=== PATIENT | female | born 1960 | race Caucasian/White ===

== ENCOUNTER 2016-10-20 12:59 | Observation (INO) | payer MEDICAID, OTHER ==
[2016-10-20] MEDS ORDERED: Albuterol-Ipratrop 3 mg / 0.5 (3 ml) UD ONE ×3 (13:02→15:46)
[2016-10-20 13:07] VITALS: BMI 35.2
[2016-10-20] MEDS ORDERED: Albuterol-Ipratrop 3 mg / 0.5 (3 ml) UD INH STA ×2 (13:08→13:51)
--- NOTE | 2016-10-20 13:09 | C.PDOC ---
History Of Present Illness 55 y/o female with past medical history of Asthma presents to ER with complaints of SOB for 3 weeks. Patient states using sister's albuterol but there was no improvement. Patient denies fever, cough, chills, N/V/D. No other complaints at this time. Time Seen by Provider: 10/20/16 13:05 Chief Complaint (Nursing): Shortness Of Breath History Per: Patient History/Exam Limitations: no limitations Onset/Duration Of Symptoms: Days Current Symptoms Are (Timing): Still Present Exacerbating Factor(s): denies: Coughing Current Respiratory Medications: Albuterol Severity: Mild Associated Symptoms: denies: Fever, Chills, Chest Pain, Dizziness Past Medical History Reviewed: Historical Data, Nursing Documentation, Vital Signs Vital Signs: Last Vital Signs Temp 98.7 F 10/20/16 13:05 Pulse 91 H 10/20/16 14:48 Resp 18 10/20/16 14:48 BP 128/79 10/20/16 14:48 Pulse Ox 96 10/20/16 14:48 Surgical History: Endoscopy Family History: States: Unknown Family Hx - Social History Hx Tobacco Use: No Hx Alcohol Use: Yes Hx Substance Use: No Review Of Systems Except As Marked, All Systems Reviewed And Found Negative. Constitutional: Negative for: Fever, Chills, Sweats Cardiovascular: Negative for: Chest Pain, Palpitations Respiratory: Positive for: Shortness of Breath. Negative for: Cough Gastrointestinal: Negative for: Nausea, Vomiting, Diarrhea Skin: Negative for: Rash Physical Exam - Physical Exam Appears: Non-toxic, No Acute Distress Skin: Normal Color, Warm Head: Atraumatic, Normacephalic Oral Mucosa: Moist Neck: Normal ROM Chest: Symmetrical Cardiovascular: Rhythm Regular Respiratory: Rhonchi (Scattered), Wheezing (Scattered ) Extremity: No Pedal Edema ED Course And Treatment - Laboratory Results Result Diagrams: 10/20/16 13:27 10/20/16 13:27 Lab Interpretation: Normal (trop/bnp neg) ECG: Interpreted By Az ECG Rhythm: Sinus Rhythm ECG Interpretation: Normal Rate From EC O2 Sat by Pulse Oximetry: 95 Pulse Ox Interpretation: Abnormal - Radiology CXR: Interpreted by [facility] CXR Interpretation: Yes: No Acute Disease Reevaluation Time: 15:54 Reassessment Condition: Improved (mild/mod improved) - Physician Consult Information Outcome Of Conversation: 1600: d/w Dr. Mcmillan- Hospitalist [employer]- ok Tele Obs. Critical Care Time - Critical Care Note Total Time (in mins): 90 Documented critical care: time excludes all time spent performing seperately billable procedures. Medical Decision Making Medical Decision Making: asthma exacerbation- ? h/o same. mild improvement in ED, but O2 sat 95% Tele obs Disposition Doctor Will See Patient In The: Hospital Counseled Patient/Family Regarding: Studies Performed, Diagnosis - Disposition Disposition: HOSPITALIZED Disposition Time: 15:56 Condition: FAIR - Clinical Impression Clinical Impression: Asthma exacerbation - PA / PRODUCT ARCHITECT / Resident Statement MD/DO has reviewed & agrees with the documentation as recorded. MD/DO has examined the patient and agrees with the treatment plan. - Scribe Statement The provider has reviewed the documentation as recorded by the Nathanibdarius Robledo All medical record entries made by the Fatmata were at my direction and personally dictated by me. I have reviewed the chart and agree that the record accurately reflects my personal performance of the history, physical exam, medical decision making, and the department course for this patient. I have also personally directed, reviewed, and agree with the discharge instructions and disposition.
[2016-10-20 13:34] LABS: BASO # 0.2 K/uL (0.0-0.2); BASO % 2.5 % (0.0-2.0); EOS # 1.1 K/uL (0.0-0.7); EOS % 15.9 % (0.0-4.0); HEMATOCRIT 44.4 % (34.0-47.0); LYMPH # 1.8 K/uL (1.0-4.3); LYMPH % 26.9 % (20.0-40.0); MEAN CELL VOLUME 92.8 fL (81.0-99.0); MEAN CORPUSCULAR HGB CONC 33.4 g/dL (33.0-37.0); MEAN PLATELET VOLUME 8.9 fL (7.2-11.7); MONO # 0.3 K/uL (0.0-0.8); MONO % 5.2 % (0.0-10.0); WHITE BLOOD COUNT 6.6 K/uL (4.8-10.8)
[2016-10-20 13:53] LABS: CHLORIDE 104 mmol/L (98-107); POTASSIUM 3.5 mmol/L (3.6-5.2); SODIUM 138 mmol/L (132-148)
[2016-10-20 13:55] LABS: BILIRUBIN,TOTAL 0.4 mg/dL (0.2-1.3); GFR AFRICAN-AMERICAN > 60
[2016-10-20 13:56] LABS: ALB/GLOB RATIO 1.2 (1.0-2.1); ALKALINE PHOSPHATASE 95 U/L (38-126); ALT/SGPT 46 U/L (9-52); AST/SGOT 35 U/L (14-36); BLOOD UREA NITROGEN 11 mg/dL (7-17); CALCIUM 8.9 mg/dl (8.6-10.4); CARBON DIOXIDE 27 mmol/L (22-30); GLUCOSE,RANDOM 122 mg/dL (65-105); TOTAL PROTEIN 7.6 g/dL (6.3-8.3)
[2016-10-20 14:59] LABS: RBC URINE 18 /hpf (0-3); URINE BACTERIA RARE (<OCC); URINE BILIRUBIN NEGATIVE (NEGATIVE); URINE BLOOD 3+ (NEGATIVE); URINE COLOR Yellow (YELLOW); URINE GLUCOSE (UA) NORMAL (Normal); URINE KETONE NEGATIVE (NEGATIVE); URINE LEUKOCYTE ESTERASE NEG Leu/uL (Negative); URINE PROTEIN 2+ mg/dL (NEGATIVE); URINE UROBILINOGEN NORMAL mg/dL (0.2-1.0); WBC URINE 1 /hpf (0-5)
[2016-10-20] MEDS ORDERED: Potassium Chloride 20 mEq ER Tab PO ONE (16:49)
--- NOTE | 2016-10-20 17:10 | RAD ---
PROCEDURE: CHEST RADIOGRAPH, 1 VIEW HISTORY: SOB COMPARISON: None available. FINDINGS: LUNGS: Clear. PLEURA: No pneumothorax or pleural fluid seen. CARDIOVASCULAR: Normal. OSSEOUS STRUCTURES: No significant abnormalities. VISUALIZED UPPER ABDOMEN: Normal. OTHER FINDINGS: None. IMPRESSION: No active disease.
--- NOTE | 2016-10-20 17:16 | CP.PCM.HP ---
<Naomi Padron - Last Filed: 10/20/16 17:03> History of Present Illness - History of Present Illness History of Present Illness: CC: "I couldn't breathe well" HPI: Patient is a 55 year old female with PMHx of asthma who presented to the ED with shortness of breath. Patient states that for the past few days she has been experiencing worsening shortness of breath secondary to her asthma. Patient has seasonal allergies and is worsened during this time of the year due to pollen in the air. Patient takes Mae OTC once a day and that usually controls her symptoms. However, today she states that she was coughing so much that she could not catch her breath. Patient was given nebulizer treatment and IV steroids in the ED. Her symptoms improved, however the patient continues to cough and wheeze. Patient is breathing comfortably on room air after treatments. She is able to speak in full sentences. Patient states that she has never been in the hospital for her asthma before and has never been intubated. She does not use any home inhalers and does not see a doctor regularly. Patient denies fever, chills, nausea, vomiting, chest pain, palpitations, headache, dizziness, sore throat, abdominal pain and weakness. Denies recent sick contacts or travel. PMD: none Meds: Mae daily Surgical Hx: 2 sections, bartholin cyst removal Family Hx: no history of asthma Social Hx: Denies tobacco use, rare EtOH use, denies illicit drugs Allergies: seasonal, NKDA Present on Admission - Present on Admission Any Indicators Present on Admission: No Review of Systems - Constitutional Constitutional: As Per HPI. absent: Chills - EENT Eyes: As Per HPI. absent: Change in Vision Ears: As Per HPI. absent: Dizziness Nose/Mouth/Throat: As Per HPI. absent: Sore Throat - Cardiovascular Cardiovascular: As Per HPI. absent: Chest Pain, Edema, Lightheadedness, Palpitations, Rapid Heart Rate, Syncope - Respiratory Respiratory: As Per HPI, Cough (non-productive ), Dyspnea, Wheezing. absent: Hemoptysis, Chest Congestion - Gastrointestinal Gastrointestinal: As Per HPI. absent: Abdominal Pain, Nausea, Vomiting - Genitourinary Genitourinary: As Per HPI. absent: Change in Urinary Stream, Difficulty Urinating - Musculoskeletal Musculoskeletal: As Per HPI. absent: Muscle Weakness, Numbness, Tingling - Integumentary Integumentary: As Per HPI. absent: New Lesions, Rash - Neurological Neurological: As Per HPI. absent: Headaches, Weakness - Endocrine Endocrine: As Per HPI. absent: Palpitations Past Patient History - Past Social History Smoking Status: Never Smoked - MUSCULOSKELETAL/RHEUMATOLOGICAL Other/Comment: chronic foot pain..tendonitis, bursitis - PSYCHIATRIC Hx Substance Use: No - SURGICAL HISTORY Hx Surgeries: Yes Hx Section: Yes - ANESTHESIA Hx Anesthesia: Yes Hx Anesthesia Reactions: No Meds Allergies/Adverse Reactions: Allergies Allergy/AdvReac Type Severity Reaction Status Date / Time No Known Allergies Allergy Verified 09/20/15 16:57 Physical Exam - Constitutional Appears: Non-toxic, No Acute Distress - Head Exam Head Exam: ATRAUMATIC, NORMOCEPHALIC - Eye Exam Eye Exam: EOMI, Normal appearance, PERRL Pupil Exam: NORMAL ACCOMODATION - ENT Exam ENT Exam: Mucous Membranes Moist, Normal Exam, Normal External Ear Exam, TM's Normal Bilaterally - Neck Exam Neck exam: Positive for: Normal Inspection - Respiratory Exam Respiratory Exam: Wheezes (diffuse wheezing throughout ), NORMAL BREATHING PATTERN. absent: Accessory Muscle Use, Rhonchi, Respiratory Distress - Cardiovascular Exam Cardiovascular Exam: REGULAR RHYTHM, +S1, +S2. absent: Tachycardia, Irregular Rhythm, Systolic Murmur - GI/Abdominal Exam GI & Abdominal Exam: Normal Bowel Sounds, Soft. absent: Distended, Firm, Guarding, Tenderness - Extremities Exam Extremities exam: Positive for: normal inspection, pedal pulses present. Negative for: joint swelling, pedal edema - Back Exam Back exam: NORMAL INSPECTION - Neurological Exam Neurological exam: Alert, CN II-XII Intact, Normal Gait, Oriented x3 - Psychiatric Exam Psychiatric exam: Normal Affect, Normal Mood - Skin Skin Exam: Dry, Intact, Normal Color, Warm Results - Vital Signs Recent Vital Signs: Last Vital Signs Temp 98.7 F 10/20/16 13:05 Pulse 91 H 10/20/16 14:48 Resp 18 10/20/16 14:48 BP 128/79 10/20/16 14:48 Pulse Ox 95 10/20/16 15:56 - Labs Result Diagrams: 10/20/16 13:27 10/20/16 13:27 Assessment & Plan - Assessment and Plan (Free Text) Assessment: 1. Uncontrolled asthma -Vitals upon admission: HR 111, RR 28, SpO2 93% on room air, BP 168/97 -Given duonebs INH and Solumedrol 125mg IV in ED -Vitals after treatment: HR 90, RR 18, SpO2 96% on room air, BP 128/79 -Chest Xray: no active disease -Admit to tele/obs for asthma exacerbation -Duonebs 3ml INH q6h [facility] (check pre and post peak flow) -Solumedrol 80mg IV q8h -Singular 10mg PO HS -NC 2L O2 prn 2. Prophylactic measures -Pepcid 20mg PO BID -SCDs -ambulatory -Heparin 5000u SC q12h <Hank Mcmillan - Last Filed: 10/20/16 17:46> Results - Vital Signs Recent Vital Signs: Last Vital Signs Temp 98.7 F 10/20/16 13:05 Pulse 91 H 10/20/16 14:48 Resp 18 10/20/16 14:48 BP 128/79 10/20/16 14:48 Pulse Ox 95 10/20/16 15:56 - Labs Result Diagrams: 10/20/16 13:27 10/20/16 13:27 Attending/Attestation - Attestation I have personally seen and examined this patient.: Yes I have fully participated in the care of the patient.: Yes I have reviewed all pertinent clinical information: Yes Notes (Text): 10/20/16 17:46 Patient was seen and examined at bedside . We will start the patient on nebulizing treatment and IV steroids We will also start on Singulair I discussed the plan of care with the resident and agree with the above history and physical and assessment/plan but the resident.
[2016-10-20] MEDS ORDERED: Pneumococcal 23-Valent Vaccine IM ONE (19:29)
[2016-10-20] MEDS: Albuterol-Ipratrop 3 mg / 0.5 (3 ml) UD INH SCH (19:54)
[2016-10-20] MEDS ORDERED: MethylPREDNISolone 40 mg Vial IVP SCH (22:00)
[2016-10-20] MEDS: MethylPREDNISolone 40 mg Vial IVP SCH (22:40)
[2016-10-21] MEDS: Albuterol-Ipratrop 3 mg / 0.5 (3 ml) UD INH SCH ×4 (01:49→19:33)
[2016-10-21] MEDS: MethylPREDNISolone 40 mg Vial IVP SCH ×3 (05:39→22:26)
[2016-10-21 08:15] LABS: BASO % 0.2 % (0.0-2.0); HEMATOCRIT 42.9 % (34.0-47.0); LYMPH # 1.1 K/uL (1.0-4.3); LYMPH % 11.1 % (20.0-40.0); MEAN CELL VOLUME 93.2 fL (81.0-99.0); MEAN CORPUSCULAR HEMOGLOBIN 31.7 pg (27.0-31.0); MEAN PLATELET VOLUME 9.1 fL (7.2-11.7); MONO # 0.1 K/uL (0.0-0.8); MONO % 1.4 % (0.0-10.0); RED CELL DISTRIBUTION WIDTH 13.1 % (11.5-14.5)
[2016-10-21 08:19] LABS: WHITE BLOOD COUNT 10.2 K/uL (4.8-10.8)
[2016-10-21 08:28] LABS: CHLORIDE 102 mmol/L (98-107); POTASSIUM 3.9 mmol/L (3.6-5.2); SODIUM 139 mmol/L (132-148)
[2016-10-21 08:31] LABS: ALB/GLOB RATIO 1.2 (1.0-2.1); ALKALINE PHOSPHATASE 88 U/L (38-126); ALT/SGPT 42 U/L (9-52); AST/SGOT 29 U/L (14-36); BILIRUBIN,TOTAL 0.5 mg/dL (0.2-1.3); BLOOD UREA NITROGEN 15 mg/dL (7-17); CARBON DIOXIDE 24 mmol/L (22-30); GFR AFRICAN-AMERICAN > 60; GLUCOSE,RANDOM 147 mg/dL (65-105); TOTAL PROTEIN 7.7 g/dL (6.3-8.3)
[2016-10-21 08:32] LABS: CALCIUM 9.3 mg/dl (8.6-10.4)
--- NOTE | 2016-10-21 11:46 | CP.PCM.PN ---
<Naomi Padron - Last Filed: 10/21/16 11:42> Subjective - Date & Time of Evaluation Date of Evaluation: 10/21/16 Time of Evaluation: 11:42 - Subjective Subjective: Medicine Progress Note Patient seen and examined. Patient states that she feels better today; however , she continues to have wheezing. Patient also has a dry cough. Denies fever, chills, nausea, vomiting, chest pain, and palpitations. Objective - Vital Signs/Intake and Output Vital Signs (last 24 hours): Temp Pulse Resp BP Pulse Ox 97.1 F L 100 H 18 121/73 95 10/21/16 10:30 10/21/16 10:30 10/21/16 10:30 10/21/16 10:30 10/21/16 10:30 Intake and Output: 10/21/16 10/21/16 06:59 18:59 Intake Total 400 Output Total 0 Balance 400 - Medications Medications: Current Medications Albuterol/Ipratropium (Duoneb 3 Mg/0.5 Mg (3 Ml) Ud) 3 ml INH RQ6 [facility] Last Admin: 10/21/16 08:06 Dose: 3 ml Famotidine (Pepcid) 20 mg PO BID [facility] Last Admin: 10/21/16 09:54 Dose: 20 mg Heparin Sodium (Porcine) (Heparin) 5,000 units SC Q12 [facility] Last Admin: 10/21/16 09:55 Dose: 5,000 units Methylprednisolone (Solu-Medrol) 40 mg IVP Q8 [facility] Last Admin: 10/20/16 22:40 Dose: 40 mg Montelukast Sodium (Singulair) 10 mg PO HS [facility] Last Admin: 10/20/16 22:40 Dose: 10 mg - Labs Labs: 10/21/16 08:02 10/21/16 08:02 - Constitutional Appears: Non-toxic, No Acute Distress - Head Exam Head Exam: ATRAUMATIC, NORMOCEPHALIC - Eye Exam Eye Exam: EOMI, Normal appearance, PERRL - ENT Exam ENT Exam: Mucous Membranes Moist - Respiratory Exam Respiratory Exam: Wheezes (diffuse throughout ), NORMAL BREATHING PATTERN. absent: Accessory Muscle Use, Chest Wall Tenderness, Rales, Rhonchi - Cardiovascular Exam Cardiovascular Exam: Tachycardia, REGULAR RHYTHM, +S1, +S2 - GI/Abdominal Exam GI & Abdominal Exam: Soft, Normal Bowel Sounds. absent: Tenderness - Extremities Exam Extremities Exam: Full ROM, Normal Inspection. absent: Pedal Edema - Neurological Exam Neurological Exam: Alert, Awake, Oriented x3 - Psychiatric Exam Psychiatric exam: Normal Affect, Normal Mood - Skin Skin Exam: Dry, Intact, Normal Color, Warm Assessment and Plan - Assessment and Plan (Free Text) Assessment: 1. Uncontrolled asthma -Peak flow pre 170/post 180, continues to have wheezing. Continue current treatment with possible DC home tomorrow if peak flow improves. -Vitals upon admission: HR 111, RR 28, SpO2 93% on room air, BP 168/97 -Given duonebs INH and Solumedrol 125mg IV in ED -Vitals after treatment: HR 90, RR 18, SpO2 96% on room air, BP 128/79 -Chest Xray: no active disease -Admit to tele/obs for asthma exacerbation -Duonebs 3ml INH q6h [facility] (check pre and post peak flow) -Solumedrol 80mg IV q8h -Singular 10mg PO HS -NC 2L O2 prn 2. Prophylactic measures -Pepcid 20mg PO BID -SCDs -ambulatory -Heparin 5000u SC q12h <Hakn Mcmillan - Last Filed: 10/21/16 11:50> Objective - Vital Signs/Intake and Output Vital Signs (last 24 hours): Temp Pulse Resp BP Pulse Ox 97.1 F L 100 H 18 121/73 95 10/21/16 10:30 10/21/16 10:30 10/21/16 10:30 10/21/16 10:30 10/21/16 10:30 Intake and Output: 10/21/16 10/21/16 06:59 18:59 Intake Total 400 Output Total 0 Balance 400 - Medications Medications: Current Medications Albuterol/Ipratropium (Duoneb 3 Mg/0.5 Mg (3 Ml) Ud) 3 ml INH RQ6 [facility] Last Admin: 10/21/16 08:06 Dose: 3 ml Famotidine (Pepcid) 20 mg PO BID [facility] Last Admin: 10/21/16 09:54 Dose: 20 mg Heparin Sodium (Porcine) (Heparin) 5,000 units SC Q12 [facility] Last Admin: 10/21/16 09:55 Dose: 5,000 units Methylprednisolone (Solu-Medrol) 40 mg IVP Q8 [facility] Last Admin: 10/20/16 22:40 Dose: 40 mg Montelukast Sodium (Singulair) 10 mg PO HS [facility] Last Admin: 10/20/16 22:40 Dose: 10 mg - Labs Labs: 10/21/16 08:02 10/21/16 08:02 Attending/Attestation - Attestation I have personally seen and examined this patient.: Yes I have fully participated in the care of the patient.: Yes I have reviewed all pertinent clinical information, including history, physical exam and plan: Yes Notes (Text): 10/21/16 11:49 Patient was seen and examined at bedside Patient continues to have significant wheezing. Monitor peak flow pre-and post treatment Continue IV steroids. Discharge planning in next 24 if the patient shows improvement in the respiratory status. I discussed the plan of care with the resident and I agree with the above history and physical and assessment/plan by the resident.
[2016-10-21] MEDS: guaiFENesin 100 mg/5 ml Syrup UD PO PRN (22:28)
[2016-10-22] MEDS: Albuterol-Ipratrop 3 mg / 0.5 (3 ml) UD INH SCH ×3 (01:42→13:29)
[2016-10-22] MEDS: MethylPREDNISolone 40 mg Vial IVP SCH ×2 (05:38→14:00)
[2016-10-22] MEDS: guaiFENesin 100 mg/5 ml Syrup UD PO PRN (10:39)
--- NOTE | 2016-10-22 14:27 | CP.PCM.DIS ---
<Sky Calolway - Last Filed: 10/23/16 19:49> Provider - Provider Date of Admission: 10/20/16 15:56 Attending physician: Hank Mcmillan MD Time Spent in preparation of Discharge (in minutes): 35 Hospital Course - Lab Results Lab Results: Most Recent Lab Values WBC 10.2 K/uL (4.8-10.8) D 10/21/16 08:02 RBC 4.61 Mil/uL (3.80-5.20) 10/21/16 08:02 Hgb 14.6 g/dL (11.0-16.0) 10/21/16 08:02 Hct 42.9 % (34.0-47.0) 10/21/16 08:02 MCV 93.2 fL (81.0-99.0) 10/21/16 08:02 MCH 31.7 pg (27.0-31.0) H 10/21/16 08:02 MCHC 34.0 g/dL (33.0-37.0) 10/21/16 08:02 RDW 13.1 % (11.5-14.5) 10/21/16 08:02 Plt Count 218 K/uL (130-400) 10/21/16 08:02 MPV 9.1 fL (7.2-11.7) 10/21/16 08:02 Neut % (Auto) 87.3 % (50.0-75.0) H 10/21/16 08:02 Lymph % (Auto) 11.1 % (20.0-40.0) L 10/21/16 08:02 Pershing % (Auto) 1.4 % (0.0-10.0) 10/21/16 08:02 Eos % (Auto) 0.0 % (0.0-4.0) 10/21/16 08:02 Baso % (Auto) 0.2 % (0.0-2.0) 10/21/16 08:02 Neut # 8.9 K/uL (1.8-7.0) H 10/21/16 08:02 Lymph # 1.1 K/uL (1.0-4.3) 10/21/16 08:02 Pershing # 0.1 K/uL (0.0-0.8) 10/21/16 08:02 Eos # 0.0 K/uL (0.0-0.7) 10/21/16 08:02 Baso # 0.0 K/uL (0.0-0.2) 10/21/16 08:02 Sodium 139 mmol/L (132-148) 10/21/16 08:02 Potassium 3.9 mmol/L (3.6-5.2) 10/21/16 08:02 Chloride 102 mmol/L (98-107) 10/21/16 08:02 Carbon Dioxide 24 mmol/L (22-30) 10/21/16 08:02 Anion Gap 17 (10-20) 10/21/16 08:02 BUN 15 mg/dL (7-17) 10/21/16 08:02 Creatinine 0.5 MG/DL (0.7-1.2) L 10/21/16 08:02 Est GFR ( Amer) > 60 10/21/16 08:02 Est GFR (Non-Af Amer) > 60 10/21/16 08:02 POC Glucose (mg/dL) 209 mg/dL (65-110) H 10/20/16 21:28 Random Glucose 147 mg/dL (65-105) H 10/21/16 08:02 Calcium 9.3 mg/dl (8.6-10.4) 10/21/16 08:02 Total Bilirubin 0.5 mg/dL (0.2-1.3) 10/21/16 08:02 AST 29 U/L (14-36) 10/21/16 08:02 ALT 42 U/L (9-52) 10/21/16 08:02 Alkaline Phosphatase 88 U/L (38-126) 10/21/16 08:02 Troponin I < 0.0120 ng/mL (0.00-0.120) 10/20/16 13:27 NT-Pro-B Natriuret Pep 41.5 pg/mL (0-900) 10/20/16 13:27 Total Protein 7.7 g/dL (6.3-8.3) 10/21/16 08:02 Albumin 4.1 g/dL (3.5-5.0) 10/21/16 08:02 Globulin 3.6 gm/dL (2.2-3.9) 10/21/16 08:02 Albumin/Globulin Ratio 1.2 (1.0-2.1) 10/21/16 08:02 Urine Color Yellow (YELLOW) 10/20/16 14:31 Urine Clarity Clear (Clear) 10/20/16 14:31 Urine pH 6.0 (5.0-8.0) 10/20/16 14:31 Ur Specific Wells 1.015 (1.003-1.030) 10/20/16 14:31 Urine Protein 2+ mg/dL (NEGATIVE) H 10/20/16 14:31 Urine Glucose (UA) Normal mg/dL (Normal) 10/20/16 14:31 Urine Ketones Negative mg/dL (NEGATIVE) 10/20/16 14:31 Urine Blood 3+ (NEGATIVE) H 10/20/16 14:31 Urine Nitrate Negative (NEGATIVE) 10/20/16 14:31 Urine Bilirubin Negative (NEGATIVE) 10/20/16 14:31 Urine Urobilinogen Normal mg/dL (0.2-1.0) 10/20/16 14:31 Ur Leukocyte Esterase Neg Bernardino/uL (Negative) 10/20/16 14:31 Urine WBC (Auto) 1 /hpf (0-5) 10/20/16 14:31 Urine RBC (Auto) 18 /hpf (0-3) H 10/20/16 14:31 Ur Squamous Epith Cells < 1 /hpf (0-5) 10/20/16 14:31 Urine Bacteria Rare (<OCC) 10/20/16 14:31 - Hospital Course Hospital Course: HPI: Patient is a 55 year old female with PMHx of asthma who presented to the ED with shortness of breath. Patient states that for the past few days she has been experiencing worsening shortness of breath secondary to her asthma. Patient has seasonal allergies and is worsened during this time of the year due to pollen in the air. Patient takes Mae OTC once a day and that usually controls her symptoms. However, today she states that she was coughing so much that she could not catch her breath. Patient was given nebulizer treatment and IV steroids in the ED. Her symptoms improved, however the patient continues to cough and wheeze. Patient is breathing comfortably on room air after treatments. She is able to speak in full sentences. Patient states that she has never been in the hospital for her asthma before and has never been intubated. She does not use any home inhalers and does not see a doctor regularly. Patient denies fever, chills, nausea, vomiting, chest pain, palpitations, headache, dizziness, sore throat, abdominal pain and weakness. Denies recent sick contacts or travel. Hospital course: Patient is a 55 y/o F who presented with SOB. chest xray performed showed no active disease process. BNP was wnl, she was afebrile without leukocytosis and she was started on duonebs and solumedrol. Her breathing improved but was kept for observation. She was determined medically stable for discharge. She was advised to: follow up with your primary care physician or make an appointment with [facility] within a week; take the Medrol 8mg BID for 3 days, then 8mg daily for 3 days, then take 4mg daily for 3 days; take medications as prescribed; avoid alcohol, tobacco, or drug use; and if your condition worsens or new symptoms arise, please return to the emergency room. She verbalized understanding and was discharged with prescriptions for Flovent hfa 1 puff BID, Singulair 10mg PO HS, Mucinex 600mg PO Q12 PRN, and Medrol taper. This is a brief summary of the patient's stay at this facility. For more detail , see patient's full chart. - Date & Time of H&P Date of H&P: 10/20/16 Time of H&P: 17:03 Discharge Exam - Head Exam Head Exam: ATRAUMATIC, NORMOCEPHALIC - Eye Exam Eye Exam: EOMI, Normal appearance, PERRL Pupil Exam: NORMAL ACCOMODATION, PERRL - ENT Exam ENT Exam: Mucous Membranes Moist, Normal Oropharynx - Neck Exam Neck exam: Normal Inspection - Respiratory Exam Respiratory Exam: Wheezes (mild), NORMAL BREATHING PATTERN. absent: Rales, Rhonchi - Cardiovascular Exam Cardiovascular Exam: REGULAR RHYTHM, +S1, +S2. absent: Gallop, Rubs, Systolic Murmur - GI/Abdominal Exam GI & Abdominal Exam: Soft. absent: Distended, Tenderness - Extremities Exam Extremities exam: normal capillary refill, normal inspection, pedal pulses present - Back Exam Back exam: NORMAL INSPECTION. absent: CVA tenderness (L), CVA tenderness (R), rash noted, tenderness - Neurological Exam Neurological exam: Alert, CN II-XII Intact, Oriented x3 - Psychiatric Exam Psychiatric exam: Normal Affect, Normal Mood - Skin Skin Exam: Dry, Intact, Normal Color, Warm Discharge Plan - Discharge Medications Prescriptions: Fluticasone Propionate [Flovent Hfa] 10.6 gm IH BID #1 aer.w.adap Guaifenesin [Mucinex ER] 600 mg PO Q12 PRN #12 ter PRN Reason: Cough Methylprednisolone [Medrol] 4 mg PO DAILY 3 Days Methylprednisolone [Medrol] 8 mg PO BID 3 Days Methylprednisolone [Medrol] 8 mg PO DAILY 3 Days Montelukast [Singulair] 10 mg PO HS #30 tab - Follow Up Plan Condition: FAIR Disposition: HOME/ ROUTINE Instructions: Guaifenesin (By mouth), Methylprednisolone (By mouth), Fluticasone (By breathing), Montelukast (By mouth), Asthma (DC), Asthma (GEN) Additional Instructions: You are medically stable for discharge. Please follow up with your primary care physician or make an appointment with the [facility] within a week. Please take the Medrol 8mg BID for 3 days, then 8mg daily for 3 days, then take 4mg daily for 3 days. Please take medications as prescribed. Please avoid alcohol, tobacco, or drug use. If your condition worsens or new symptoms arise, please return to the emergency room. Referrals: [facility] at [facility] [Outside] <Lenin Kraft - Last Filed: 10/24/16 07:23> Provider - Provider Date of Admission: 10/20/16 15:56 Attending physician: Hank Mcmillan MD Hospital Course - Lab Results Lab Results: Most Recent Lab Values WBC 10.2 K/uL (4.8-10.8) D 10/21/16 08:02 RBC 4.61 Mil/uL (3.80-5.20) 10/21/16 08:02 Hgb 14.6 g/dL (11.0-16.0) 10/21/16 08:02 Hct 42.9 % (34.0-47.0) 10/21/16 08:02 MCV 93.2 fL (81.0-99.0) 10/21/16 08:02 MCH 31.7 pg (27.0-31.0) H 10/21/16 08:02 MCHC 34.0 g/dL (33.0-37.0) 10/21/16 08:02 RDW 13.1 % (11.5-14.5) 10/21/16 08:02 Plt Count 218 K/uL (130-400) 10/21/16 08:02 MPV 9.1 fL (7.2-11.7) 10/21/16 08:02 Neut % (Auto) 87.3 % (50.0-75.0) H 10/21/16 08:02 Lymph % (Auto) 11.1 % (20.0-40.0) L 10/21/16 08:02 Pershing % (Auto) 1.4 % (0.0-10.0) 10/21/16 08:02 Eos % (Auto) 0.0 % (0.0-4.0) 10/21/16 08:02 Baso % (Auto) 0.2 % (0.0-2.0) 10/21/16 08:02 Neut # 8.9 K/uL (1.8-7.0) H 10/21/16 08:02 Lymph # 1.1 K/uL (1.0-4.3) 10/21/16 08:02 Pershing # 0.1 K/uL (0.0-0.8) 10/21/16 08:02 Eos # 0.0 K/uL (0.0-0.7) 10/21/16 08:02 Baso # 0.0 K/uL (0.0-0.2) 10/21/16 08:02 Sodium 139 mmol/L (132-148) 10/21/16 08:02 Potassium 3.9 mmol/L (3.6-5.2) 10/21/16 08:02 Chloride 102 mmol/L (98-107) 10/21/16 08:02 Carbon Dioxide 24 mmol/L (22-30) 10/21/16 08:02 Anion Gap 17 (10-20) 10/21/16 08:02 BUN 15 mg/dL (7-17) 10/21/16 08:02 Creatinine 0.5 MG/DL (0.7-1.2) L 10/21/16 08:02 Est GFR ( Amer) > 60 10/21/16 08:02 Est GFR (Non-Af Amer) > 60 10/21/16 08:02 POC Glucose (mg/dL) 209 mg/dL (65-110) H 10/20/16 21:28 Random Glucose 147 mg/dL (65-105) H 10/21/16 08:02 Calcium 9.3 mg/dl (8.6-10.4) 10/21/16 08:02 Total Bilirubin 0.5 mg/dL (0.2-1.3) 10/21/16 08:02 AST 29 U/L (14-36) 10/21/16 08:02 ALT 42 U/L (9-52) 10/21/16 08:02 Alkaline Phosphatase 88 U/L (38-126) 10/21/16 08:02 Troponin I < 0.0120 ng/mL (0.00-0.120) 10/20/16 13:27 NT-Pro-B Natriuret Pep 41.5 pg/mL (0-900) 10/20/16 13:27 Total Protein 7.7 g/dL (6.3-8.3) 10/21/16 08:02 Albumin 4.1 g/dL (3.5-5.0) 10/21/16 08:02 Globulin 3.6 gm/dL (2.2-3.9) 10/21/16 08:02 Albumin/Globulin Ratio 1.2 (1.0-2.1) 10/21/16 08:02 Urine Color Yellow (YELLOW) 10/20/16 14:31 Urine Clarity Clear (Clear) 10/20/16 14:31 Urine pH 6.0 (5.0-8.0) 10/20/16 14:31 Ur Specific Wells 1.015 (1.003-1.030) 10/20/16 14:31 Urine Protein 2+ mg/dL (NEGATIVE) H 10/20/16 14:31 Urine Glucose (UA) Normal mg/dL (Normal) 10/20/16 14:31 Urine Ketones Negative mg/dL (NEGATIVE) 10/20/16 14:31 Urine Blood 3+ (NEGATIVE) H 10/20/16 14:31 Urine Nitrate Negative (NEGATIVE) 10/20/16 14:31 Urine Bilirubin Negative (NEGATIVE) 10/20/16 14:31 Urine Urobilinogen Normal mg/dL (0.2-1.0) 10/20/16 14:31 Ur Leukocyte Esterase Neg Bernardino/uL (Negative) 10/20/16 14:31 Urine WBC (Auto) 1 /hpf (0-5) 10/20/16 14:31 Urine RBC (Auto) 18 /hpf (0-3) H 10/20/16 14:31 Ur Squamous Epith Cells < 1 /hpf (0-5) 10/20/16 14:31 Urine Bacteria Rare (<OCC) 10/20/16 14:31 Attending/Attestation - Attestation I have personally seen and examined this patient.: Yes I have fully participated in the care of the patient.: Yes I have reviewed all pertinent clinical information, including history, physical exam and plan: Yes Notes (Text): Medical Attending: Patient was seen and examined by me. Agree with the above note by the resident. This is a patient from previous week. She will need to take a tapering dose of oral steroids and then also inhalers as described above in the resident note. thank you Lnein Kraft
[2016-10-22 15:39] VITALS: BP 129/82; PULSE 99; RESP 20; TEMP 98.1; O2SAT 96
--- NOTE | 2016-10-25 15:06 | CARD ---
APPROVED REPORT EKG Measurement Heart [id number] <Conclusion> Normal sinus rhythm Normal ECG
== END 2016-10-22 19:11 | disposition home or self-care (01) ==
LOC: C.ER 12:59 → C.9E 15:56 → C.6T 16:25
PROVIDERS: ADMIT Internal Medicine; ATTEND Internal Medicine
DX: J45.901 Unspecified asthma with (acute) exacerbation (principal)
CPT/HCPCS: 36415; 71010; 80053; 81001; 82948; 83880; 84484; 85025; 93005; 94150; 94640; 94760; 96374; 99285; G0378; J1644; J2920; J2930

== ENCOUNTER 2017-02-14 22:24 | Emergency (ER) | payer SELFPAY ==
[2017-02-14 22:24] VITALS: BMI 35.2
[2017-02-14 22:40] VITALS: RESP 16
[2017-02-14] MEDS ORDERED: Amoxicillin-Clav 875-125 mg Tab PO STA (23:52)
--- NOTE | 2017-02-14 23:58 | C.PDOC ---
History Of Present Illness 56 y/o F c PMHx asthma p/w dizziness x 3 days. Describes the dizziness as a room spinning, worse with movement of the head, better with staying still. She notes a parietal, bilateral headache which is typical of her usual headaches but also with a new pain of the R ear. Denies fever, stiff neck, trauma, numbness, weakness. She notes some vomiting with the dizziness. Denies abdominal pain. Time Seen by Provider: 02/14/17 23:15 Chief Complaint (Nursing): Dizziness/Lightheaded History Per: Patient History/Exam Limitations: no limitations Onset/Duration Of Symptoms: Days (3) Current Symptoms Are (Timing): Still Present Fall Associated With With Symptoms: No Severity: Mild Recent travel outside of the [place]: No Additional History Per: Patient Past Medical History Reviewed: Historical Data, Nursing Documentation, Vital Signs Vital Signs: Last Vital Signs Temp 98.3 F 02/14/17 22:37 Pulse 77 02/14/17 22:37 Resp 16 02/14/17 22:37 BP 136/85 02/14/17 22:37 Pulse Ox 98 02/15/17 00:07 - Medical History PMH: Asthma Denies: Chronic Kidney Disease Surgical History: Endoscopy Family History: States: Unknown Family Hx - Social History Hx Tobacco Use: No Hx Alcohol Use: Yes (ON SPECIAL OCCASIONS) Hx Substance Use: No - Immunization History Hx Tetanus Toxoid Vaccination: No Hx Influenza Vaccination: No Hx Pneumococcal Vaccination: No Review Of Systems Except As Marked, All Systems Reviewed And Found Negative. Constitutional: Negative for: Fever ENT: Positive for: Ear Pain (Right ear, new) Cardiovascular: Negative for: Chest Pain Gastrointestinal: Positive for: Vomiting Neurological: Positive for: Dizziness Physical Exam - Physical Exam Additional Physical Exam Comments: Constitutional: No acute distress. Head: Normocephalic. Atraumatic. Eyes: PERRL. ENT: Moist mucous membranes. R TM erythematous. Neck: Supple. Cardiovascular: Regular rate. Radial pulse 2+ bilaterally. Chest: No tenderness. Respiratory: Clear to auscultation bilaterally. GI: Soft. Nontender. Nondistended. Back: No CVA tenderness. Musculoskeletal: No tenderness or swelling of extremities. Skin: No rash. Neurologic: Alert and awake. (+) Noble Hallpike. ED Course And Treatment O2 Sat by Pulse Oximetry: 98 (RA) Pulse Ox Interpretation: Normal Medical Decision Making Medical Decision Making: Plans: * Augmentin * Antivert Patient with reproducible vertigo and R TM erythema. Will treat otitis media with Augmentin, give meclizine for symptomatic relief of vertigo. Patient walking with steady gait, states her vertigo is almost completely gone. Will discharge home, f/u primary care, return to ED for worsening pain, fever, intractible vertigo, or any other problem. Disposition - Disposition Referrals: [facility] [Outside] Disposition: HOME/ ROUTINE Disposition Time: 00:50 Condition: STABLE Prescriptions: Amoxicillin/Clavulanate [Augmentin 875 MG-125 MG] 1 tab PO BID #20 tab Meclizine [Antivert] 25 mg PO TID PRN #20 tab PRN Reason: Dizziness Instructions: Otitis Media (ED), Vertigo (ED) Forms: Clink (Malian) - Clinical Impression Clinical Impression: Otitis media, Vertigo - Scribe Statement The provider has reviewed the documentation as recorded by the Scribdarius honeycutt All medical record entries made by the Scribe were at my direction and personally dictated by me. I have reviewed the chart and agree that the record accurately reflects my personal performance of the history, physical exam, medical decision making, and the department course for this patient. I have also personally directed, reviewed, and agree with the discharge instructions and disposition.
[2017-02-15] MEDS ORDERED: Amoxicillin-Clav 875-125 mg Tab PO ONE (00:21)
[2017-02-15 01:09] VITALS: BP 115/73; PULSE 73; TEMP 97.6; O2SAT 97
== END 2017-02-15 02:16 | disposition home or self-care (01) ==
LOC: C.ER 22:24
DX: H66.91 Otitis media, unspecified, right ear (principal); R42 Dizziness and giddiness